=== PATIENT | female | born 1995 | race Caucasian/White ===

== ENCOUNTER → 2020-05-16 | Outpatient (CLI) | payer BC, SELFPAY ==
[2020-05-19 07:06] LABS: Chlamydia By Nucleic Acid AMP Negative (Negative)
[2020-05-19 13:03] LABS: Gonococcus By Nucleic Acid AMP Negative (Negative)
[2020-05-20 11:32] LABS: HPV Reflexed? NOT INDICATED
== END | disposition home or self-care (01) ==
LOC: LABSPEC 16:28
PROVIDERS: PCP Pediatrics; Visit Provider Student in an Organized Health Care Education/Training Program
DX: Z12.4 Encounter for screening for malignant neoplasm of cervix (principal); Z11.3 Encounter for screening for infections with a predominantly sexual mode of transmission; Z32.01 Encounter for pregnancy test, result positive
CPT/HCPCS: 87491; 87591; 88175; G0145

== ENCOUNTER → 2020-05-19 10:17 | Outpatient (CLI) | payer BC, SELFPAY ==
[2020-05-19 13:57] LABS: Absolute Lymphocyte Count 2.21 X10^3/uL (0.83-4.51); Absolute Neutrophil Count 9.3 X10^3/uL (2.0-7.7); Basophil# 0.08 X10^3/uL; Basophil% 0.6 % (0-1); Eosinophil# 0.03 X10^3/uL; Eosinophils% 0.2 % (0-5); Hematocrit 39.4 % (37-47); Lymphocyte # 2.21 X10^3/ul (4.0); Lymphocyte % 17.5 % (19-41); Mean Corpuscular Hgb 30.2 pg (27.0-32.0); Mean Corpuscular Volume 91.6 fL (81-99); Mean Platelet Vol. 11.1 fl (6.2-12.0); Monocyte% 7.9 % (0-10); NRBC Flagged by Analyzer 0 % (0-5); Neutrophil # 9.25 X10^3/uL (2.7-7.7); Neutrophil % 73.2 % (47-70); Platelet Count 347 K/mm3 (150-450); RBC Distribution Width CV 12.4 % (11.6-14.6); RBC Distribution Width SD 41.4 fl (35.1-43.9); White Blood Count 12.7 K/mm3 (4.4-11.0)
[2020-05-19 15:44] LABS: HIV - WCH Non-Reactive (Nonreactive); Hepatitis B Surface Antigen Non-Reactive (Nonreactive); Hepatitis C Antibody Non-Reactive (Nonreactive); Rubella IgG Reactive (Nonreactive)
[2020-05-23 09:21] LABS: Syphilis Antibodies Non-reactive
== END ==
PROVIDERS: Visit Provider Student in an Organized Health Care Education/Training Program
DX: Z34.81 Encounter for supervision of other normal pregnancy, first trimester (principal)
CPT/HCPCS: 36415; 85025; 86703; 86762; 86803; 87077; 87086; 87088; 87186; 87340

== ENCOUNTER → 2020-09-15 10:58 | Outpatient (CLI) | payer BC, SELFPAY ==
[2020-09-15 12:00] LABS: Hematocrit 33.6 % (37-47); Hemoglobin 11.3 g/dL (12.0-15.0); Mean Corp Hgb Conc 33.6 g/dL (32-36); Mean Corpuscular Hgb 29.7 pg (27.0-32.0); Mean Corpuscular Volume 88.2 fL (81-99); Mean Platelet Vol. 10.6 fl (6.2-12.0); Platelet Count 333 K/mm3 (150-450); RBC Distribution Width CV 12.9 % (11.6-14.6); RBC Distribution Width SD 41.4 fl (35.1-43.9); Red Blood Count 3.81 M/mm3 (4.2-5.4); White Blood Count 13.2 K/mm3 (4.4-11.0)
[2020-09-15 12:18] LABS: Glucose Challenge Gest 1H 50g 173 mg/dL (70-140)
== END ==
PROVIDERS: Visit Provider Obstetrics & Gynecology
DX: Z34.82 Encounter for supervision of other normal pregnancy, second trimester (principal)
CPT/HCPCS: 36415; 82950; 85027; 86850

== ENCOUNTER → 2020-09-23 09:42 | Outpatient (CLI) | payer BC, SELFPAY ==
[2020-09-23 10:26] LABS: Glucose GTT-Gestation. Fasting 85 mg/dL (<105)
[2020-09-23 11:44] LABS: Glucose GTT-Gestational 1 Hr 176 mg/dL (<190)
[2020-09-23 13:41] LABS: Glucose GTT-Gestational 3 Hr 85 L (<145)
[2020-09-23 13:42] LABS: Glucose GTT-Gestational 2 Hr 138 mg/dL (<165)
== END ==
PROVIDERS: Referring Provider Student in an Organized Health Care Education/Training Program; Visit Provider Student in an Organized Health Care Education/Training Program
DX: O24.419 Gestational diabetes mellitus in pregnancy, unspecified control (principal); Z3A.00 Weeks of gestation of pregnancy not specified
CPT/HCPCS: 36415; 82951; 82952

== ENCOUNTER → 2020-10-06 10:57 | Outpatient (CLI) | payer BC, SELFPAY | PROVIDERS: Visit Provider Obstetrics & Gynecology | DX: Z34.83 Encounter for supervision of other normal pregnancy, third trimester (principal) | CPT/HCPCS: 36415; 86850 ==

== ENCOUNTER → 2020-11-18 11:37 | Outpatient (CLI) | payer BC, SELFPAY ==
[2020-11-18 11:41] LABS: Bacteria 0 SEEN /hpf (None Seen); Mucous, Urine 0 SEEN /hpf (<or=2+); Red Blood Cells-Urine 0 SEEN /hpf (0-5); Squamous Epithelial Cells - UA 0 SEEN /hpf (5-10); White Blood Cells 0 SEEN /hpf (0-5)
[2020-11-18 12:44] LABS: Hematocrit 37.3 % (37-47); Hemoglobin 12.3 g/dL (12.0-15.0); Mean Platelet Vol. 10.6 fl (6.2-12.0); Platelet Count 292 K/mm3 (150-450); RBC Distribution Width CV 13.2 % (11.6-14.6); RBC Distribution Width SD 42.3 fl (35.1-43.9); Red Blood Count 4.24 M/mm3 (4.2-5.4); White Blood Count 15.1 K/mm3 (4.4-11.0)
[2020-11-18 12:47] LABS: Color, Urine Yellow (Yellow); Glucose, Dipstick Normal (Normal); Ketone-Dipstick Negative (Negative); Leukocyte Esterase-Dipstick 500 /ul (Negative); Nitrite-Dipstick Negative (Negative); Occult Blood-Urine Negative /ul (Negative); Protein-Dipstick Negative (Negative); Specific Gravity, Urine 1.005 (1.002-1.030); Urine Bilirubin Dipstick Negative (Negative); Urine Clarity Clear (Clear); Urine Urobilinogen Normal (Normal)
[2020-11-18 12:53] LABS: Creatinine, Urine (random) < 13.00 mg/dL (NO RANGE EST.); Protein, Urine (Random) < 6.0 mg/dL (<11.9)
[2020-11-18 12:56] LABS: ALB/GLOB Ratio 0.7 RATIO (0.9-2.4); AST(SGOT) 13 U/L (15-37); Alanine Aminotransfer ALT/SGPT 16 U/L (13-56); Albumin, Serum 2.7 g/dL (3.2-5.0); Alkaline Phosphatase 123 U/L (45-117); Anion Gap 8 (5-15); BUN 5 mg/dL (7-18); BUN/Creat Ratio 11.3 RATIO (10-20); Calcium,Total 8.7 mg/dL (8.5-10.1); Chloride 107 mmol/L (98-107); Creatinine, Serum 0.44 mg/dL (0.55-1.02); EST Glomerular Filtration Rate 182 mL/min (>60); Est Glom Filt Rate - Afr Amer 220 mL/min (>60); Globulin 4.1 g/dL (2.2-4.2); Glucose 85 mg/dL (74-106); LDH 147 U/L (84-246); Potassium 3.6 mmol/L (3.5-5.1); Protein, Total 6.8 g/dL (6.4-8.2); Sodium Level 139 mmol/L (136-145)
== END ==
PROVIDERS: Visit Provider Obstetrics & Gynecology
DX: O13.9 Gestational [pregnancy-induced] hypertension without significant proteinuria, unspecified trimester (principal); Z3A.00 Weeks of gestation of pregnancy not specified
CPT/HCPCS: 36415; 80053; 81001; 82570; 83615; 84156; 85027

== ENCOUNTER → 2020-11-28 | Outpatient (CLI) | payer BC, SELFPAY | END | disposition home or self-care (01) | LOC: LABSPEC 15:46 | PROVIDERS: Visit Provider Obstetrics & Gynecology | DX: Z36.85 Encounter for antenatal screening for Streptococcus B (principal) | CPT/HCPCS: 87081 ==

== ENCOUNTER 2020-12-06 18:33 | Inpatient (IN) | payer BC, SELFPAY ==
[2020-12-06] VITALS (9 sets, daily range): BP systolic 117–147; BP diastolic 70–89; PULSE 67–90; TEMP 36.4–36.9; O2SAT 96–98; BMI 31.1
--- NOTE | 2020-12-06 19:51 | HP.PCM.OB_ITS ---
HPI - General General Date of Admission: 12/06/20 HPI Narrative DIANNA FLOOD, is a 25 F who presents for scheduled IOL for gHTN. Denies headache, vision changes, shortness of breath. She feels well today. Maternal Data Information ROBYN Calculator Estimated Delivery Date Method Current WG Current Estimate 12/24/20 Manual 37w 3d PFSH [facility] Medical History (Updated 12/06/20 @ 21:[address] Arlen Sandra MD) Anxiety Gestational HTN Superficial varicosities Home Medications [id number] [] 1 tab PO DAILY 12/06/20 [History Last Taken 12/06/20] Allergy/AdvReac Type Severity Reaction Status Date / Time Latex, Natural Rubber Allergy Rash Verified 12/06/20 19:44 Family History (Updated 12/06/20 @ 21:[address] Arlen Sandra MD) Father Hypertension Cancer skin cancer CAD (coronary artery disease) Mother , age 43 Asthma Cancer breast, ovarian, colon cancer Brother Asthma Surgical History (Updated 12/06/20 @ 21:[address] Arlen Sandra MD) No history of previous surgery Social History Smoking Status: Light Smoker (<10/day) History 1 Elective abortions Hx Para 0 Spontaneous abortions Hx # Term Pregnancies Ectopic pregnancies Hx # Pregnancies Multiple births # of living children NST FHR Rate Baby B Baseline: 130 Variability:: Moderate Accelerations:: 15 x 15 Decelerations:: None NST Reactive:: Yes FHR Category:: Category I Uterine Activity:: 04/10 Vital Signs Vital Signs Vital Signs: 12/06/20 19:26 12/06/20 19:27 12/06/20 19:36 Temperature 98.1 F Temperature Source Temporal Pulse Rate 77 80 Blood Pressure 129/80 H BP Systolic 129 BP Diastolic 80 Pulse Ox 97 98 Weight Weight: 89.5 kg Body Mass Index (BMI) 31.1 Physical Exam Const alert, oriented x3 and no apparent distress HEENT normocephalic Resp normal respiratory effort, normal air movement and clear to auscultation bilaterally Cardio regular rate and regular rhythm GI normal to inspection, nondistended, normoactive bowel sounds, soft to palpation, non-tender and non-distended Inspection: gravid Narrative: 0/40/-3 per RN exam Bedside US performed by myself - CEPHALIC, back maternal left Labs Labs Labs: Blood Type A NEGATIVE Antibody Screen NEGATIVE Hct 36.9 % (37-47) L Hgb 12.4 g/dL (12.0-15.0) Syphilis Total Ab Non-reactive Rubella IgG Antibody Reactive (Nonreactive) Hep Bs Antigen Non-Reactive (Nonreactive) Neisseria gonorrhoeae DNA (REHAN) Negative (Negative) HIV 1&2 Antibody Non-Reactive (Nonreactive) Glucose 1 Hr 50 gm 173 mg/dL (70-140) H ACOG ANTEPARTUM RECORD - HISTORY AND PHYSICAL (12/06/2020) Name: DIANNA FLOOD History of this : This is a 25 year old [id number] presents at 37 wks + 3 days gestation. OB Physician: Roula Mckinley Tensed's Physician: UNDECIDED ...................................................................... : 1995 Age: 25 Address: [address] [place] [address] Phone: [phone]) [phone] Insurance Carrier: [facility] [id number] Emergency Contact: NATHAN CALLEJAS [phone] ...................................................................... Final ROBYN: 12/24/20 By Ultrasound: 8 weeks 5 days PARITY: (G-Total Pregnancies P-Fullterm,Premature,Induced AB,Spont AB, Ectopics, Multiple,Living) ROBYN CONFIRMATION: By LMP: 03/19/20 By First Ultrasound Exam: 12/19/20 Final ROBYN: 12/24/20 OB PROBLEM LIST: ALLERGIC TO LATEX. Enc office Childbirth Class. EPDS 6. Declines genetic testing. Desires immediate PP IUD Gestational HTN , needs IOL at 37wks Rh negative ALLERGIES: Latex Rash MEDICATIONS: AZO Complete Feminine Balance 5 billion cell capsule One pill by mouth once a day Classic 28 mg iron- 800 mcg tablet One pill by mouth once a day metronidazole 500 mg tablet 1 PO BID SOCIAL HISTORY: Smoking - smoker x 4 y. Quit Apr. Alcohol Use - RARELY not while Diet - balanced Diet and occ pop. Water tries for 4-5 bottles per night Lifestyle - moderate stress lifestyle Exercise - light workout. 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 Illicit Drug Use - denies use of street drugs Sexual Activity - did not discuss sexual history Place of - [place] Worked - 40 + Spouse-Sig Other Name - Lakhwindervonnie Callejas Spouse-Sig Other Occupation - [employer] Spouse-Sig Other Phone No - [phone] PRIOR DELIVERY HISTORY DEL DATE GEST LAB WT LB WT OZ TYPE ANES LABOR TX ANTEPARTUM FLOW CHART VISIT GE RTC FU F F MI U U DATE WK MD WKS HT PN HR M SS BP ED WT MI GL D EF ST __ ____ ___ __ __ ___ __ __ __ ___ __ __ __ ___ __ 30 Oct JM 1 36 V + + 124/70 0 200 - cl Oct JM 1 34 V + + 144/86 0 198 - - 04 Oct JM 2 32 V + + 140/72 0, 192 ne ne cl Oct 28 JM 2 30 - + + 148/72 0 192 - - 08 Oct 26 JM 2 28 - + + 134/74 0 188 - - Sep 23 JMW 3 25 + + 136/68 0 185 - - August 19 JMW 4 21 + + 150/88 0 181 ne ne May 13 CM 4 + O 134/74 0 174 - - May 8 CM 4 + 124/62 0 171 ANTEPARTUM NOTE(S): Nov 28 2020: Nov 18 2020: no concerns expressed Nov 02 2020: Oct 20 2020: 2nd BP 132/68 Oct 06 2020: Good FM, Feeling Well Sep 15 2020: CBC,OGCT Today,Good FM Aug 19 2020: US today, glucola given Jun 24 2020: May 19 2020: US today, genetic packet COMPREHENSIVE ANTEPARTUM NOTE(S): Dec 01 2020: H taken to OB. ab Nov 28 2020: Scheduled for Cytotec Induction for Saturday evening 12/06/20 at 1900, to call at 1700 to confirm available room. All consents have been signed. ALLISON Nov 28 2020: Dianna is here for initial NST. Procedure explained. Questions answered. Feeling well. Baby active. No edema, headache, epigastric pain. Has taken no classes. Pre registration discussed and info given. LARC form read and signed- she req Nicolásena post del. GBS to be done today. NST read as reactive by Dr KAUR. CONCHITA. Nov 28 2020: 36 weeks, diagnosis of gestational hypertension scheduled for induction of labor 12/06/2020 at 7 PM via Cytotec. Patient remains asymptomatic, HELLP labs wnl. GBS collected today. NATASHA Nov 18 2020: Dianna is here for a PNV. Good FM. No edema present at this time. Back pain, pt states she works a lot. Denies ctx's/ [facility] page. No concerns expressed. PIH labs today. MK Nov 18 2020: 34 weeks, began with elevated blood pressure asymptomatic. Now with diagnosis of gestational hypertension, educated patient on gestational hypertension and its risks maternally and . For HELLP labs today. Ultrasound today AGA. For NST next visit. We will schedule induction of labor at 37 weeks next visit. For GBS next visit. NATASHA Nov 02 2020: 32wks, complaints of discharge. SSE neg ferning, pos clue cells. CE closed. Dx with BV. Rx Flagyl sent. Will have to evaluate HTN at next visit if persistent, gHTN vs cHTN. Nov 02 2020: Dianna is here for PNV. See message from 11/01. Today with c/o vaginal odar similar to when she had BV. No itching or discharge. Having good FM. No edema noted today. Urine neg/neg. LSS Oct 20 2020: Continues to work @ [employer] 3 - 12 hr shifts + 3 - 8 hr shifts, 6 days / week. Dr India Lal had wanted her to limit standing to 6 hrs at a time, but this is not possible at her job; advised to call if this is becoming difficult for her. Discuss further w/Dr. Sondra Lal. Good FM. Voicing no concerns today. kbm Oct 20 2020: 30 weeks, no complaints. Oct 06 2020: Rhogam full dose given IM in RUOQ today via undersigned after antibody screen drawn. Lot: [id number] Exp: 11-13-20 ALLISON Oct 06 2020: 28 weeks, failed 1 hour GTT but passed 3-hour GTT. For RhoGam today. Works at [employer], discussed work restrictions previously placed on work restrictions by Dr. Nick Lal. Aug 19 2020: Dianna is here for PNV. Having US today. Feeling well with no complaints. Good FM noted. BP elevated 150/88. Retaken lying on left side 130/68. No edema noted. Glucola given with instructions. Voiced understanding. Urine neg/neg. LSS Jun 24 2020: 13/6w visit. Feeling well. F/u 4-5w. CM Jun 21 2020: TELEHEALTH NOB- Dianna had a partial NOB visit. Stated her cell phone was almost and she had no way to charge it. Checklist NOT co mpleted. Dianna is a 25 yo G 1 P 0 w ROBYN 12-24-20 planning a vag del at [facility] uncertain of epidural, post disch ped care and was not asked yet about feeding method. FOB is Lakhwinder. They both work at [employer]. Dianna works in sanitation 40+ h/w. She quit smoking May 19 2020: Dianna is here with SO following US for PNV. Both are very excited about and seeing baby and hearing heart beat on US. Feeling well and not having any N/V. Instructed to increase fluid intake eyal water throughout . Genetic packet given. LSS May 19 2020: 8/5w visit. ROBYN 12/24/20 by LMP FINAL. BP improved today. PNP drawn. F/u 4w. CM May 16 2020: Dianna is here with Lakhwinder GUY for missed menses appt. Urine pg test positive. c/o breast tenderness and fatigue. LMP 03/17/2020. Allergic to latex. DRC REVIEW OF SYSTEMS: GENERAL - Denies fever, or chills SKIN - Denies rash, new skin lesions, or change in moles EYES - Denies blurred vision, or change in visual acuity EARS - Denies ear pain, or difficulty hearing NOSE - Denies nasal congestion, discharge, or bleeding MOUTH - Denies sore throat, or difficulty swallowing NECK - Denies pain or swelling RESPIRATORY - Denies shortness of breath, cough, wheezing CARDIOVASCULAR - Denies palpitations, chest pain, orthopnea, PND, peripheral edema, syncope or claudication GASTROINTESTINAL - Denies nausea, vomiting, diarrhea, constipation, Denies abdominal pain, melena and or bright red blood GENITOURINARY - Denies dysuria, frequency of urination, urgency, or hesitancy MUSCULOSKELETAL - Denies joint or muscle pain, or back pain NEUROLOGICAL - Denies localized numbness, weakness, or tingling PSYCHIATRIC - Denies depression, anxiety, substance abuse or suicide attempts ENDOCRINE - Denies heat or cold intolerance, weight loss or gain, increasing th irst HEMATO-IMMUNOLOGIC - Denies easy bruising, bleeding, oral ulcerations or recurrent infections GENETICS SCREENING: Age 35+ years: No Thalassemia: No Neural Tube Defect: No Down Syndrome: No ROEL-SACHS: No Sickle Cell Disease: No Hemophilia: No Musc. Dystrophy: No Cystic Fibrosis: No-declines screening Delmi Chorea: No Mental Retardation: No Fragile X: No Other genetic: No Other defects: No SABs/still births: No Drugs since LMP: No INFECTION HISTORY: High risk AIDS: No High risk Hepatitis: No Exposed to TB: No Exposed to Herpes: No Rash/viral illness since LMP: No History of STD: No MENSTRUAL HISTORY: *Menses Amount/Duration: 4-5 DAYSMenses Regularity: RegularFrequency: monthlyBCP's at Conception: NoMenarche (Age Onset): 10* PAST SUMMARY: PARITY: 1. Total Pregnancies............ 1 2. Full Term Pregnancies........ 0 3. Premature.................... 0 4. Abortions - Induced.......... 0 5. Abortions - Spontaneous...... 0 6. Ectopics..................... 0 7. Multiple Births.............. 0 8. Living Children.............. 0 LAB TEST(S) ORDERED SINCE:03/29/20 12/01/2020 RULE OUT BETA STREP (GRP. B) 11/18/2020 URINALYSIS, COMPLETE 11/18/2020 PROTEIN+CREATININE RATIO,URINE 11/18/2020 LDH 11/18/2020 COMPREHENSIVE METABOLIC PROFIL 11/18/2020 CBC-COMPLETE BLOOD CNT NO DIFF 10/06/2020 [id number] 09/23/2020 GESTATIONAL GTT 3HR 100G 09/15/2020 GLUCOSE CHALLENGE GEST 1H 50G 09/15/2020 CBC-COMPLETE BLOOD CNT NO DIFF 09/15/2020 [id number] 05/23/2020 L509.8000 05/21/2020 URINE CULTURE 05/20/2020 PAP I-G W/RFX HRHPV-APTIMA 05/19/2020 RUBELLA IGG 05/19/2020 T AND S-NO CHARGE W/PNP 05/19/2020 HIV - [facility] 05/19/2020 HEPATITIS C ANTIBODY 05/19/2020 HEPATITIS B SURFACE ANTIGEN 05/19/2020 CHLAMYDIA/GC REHAN APTIMA 05/19/2020 CBC W/DIFF, AUTOMATED == ==== Order Observation Description Value Ref_Range A* Site == ==== RULE OUT BETA S NOTE RAE LDH NOTE RAE LDH LDH 147 U/L 84-246 ML COMPREHENSIVE M NOTE RAE COMPREHENSIVE M GLU 85 mg/dL 74-106 ML Please note revised GLUCOSE reference range effective 05/03/2017. COMPREHENSIVE M BUN 5 mg/dL 7-18 L ML COMPREHENSIVE M CREAT,SERUM 0.44 mg/dL 0.55-1.02 L ML The validity of the calculated GFR GFRAA in patients over 70 years has not been determined. Clinical correlation is essential. COMPREHENSIVE M EST GFR 182 mL/min >60 ML Non- GFR Calc COMPREHENSIVE M EST GFR - AA 220 mL/min >60 ML GFR Calc COMPREHENSIVE M BUN/CRE 11.3 RATIO 10-20 ML COMPREHENSIVE M T PROT 6.8 g/dL 6.4-8.2 ML COMPREHENSIVE M ALB 2.7 g/dL 3.2-5.0 L ML COMPREHENSIVE M GLOB 4.1 g/dL 2.2-4.2 ML COMPREHENSIVE M A/G 0.7 RATIO 0.9-2.4 L ML COMPREHENSIVE M CA,TOTAL 8.7 mg/dL 8.5-10.1 ML COMPREHENSIVE M AST 13 U/L 15-37 L ML COMPREHENSIVE M ALK P 123 U/L 45-117 H ML COMPREHENSIVE M ALT 16 U/L 13-56 ML COMPREHENSIVE M T BILI 0.30 mg/dL 0.20-1.00 ML For patients on eltrombopag therapy, use of Dimension [place] TBIL is not recommended. COMPREHENSIVE M NA 139 mmol/L 136-145 ML COMPREHENSIVE M POTASSIUM 3.6 mmol/L 3.5-5.1 ML COMPREHENSIVE M CL 107 mmol/L 98-107 ML COMPREHENSIVE M CO2 24.0 mmol/L 21.0-32.0 ML COMPREHENSIVE M GAP 8 5-15 ML URINALYSIS, COM NOTE RAE URINALYSIS, COM WBC 0 SEEN /hpf 0-5 ML URINALYSIS, COM RBC 0 SEEN /hpf 0-5 ML URINALYSIS, COM EPI,SQUAMOUS 0 SEEN /hpf 5-10 ML URINALYSIS, COM BACTERIA 0 SEEN /hpf None Seen ML URINALYSIS, COM MUCUS 0 SEEN /hpf <or=2+ ML PROTEIN+CREATIN NOTE RAE PROTEIN+CREATIN UR CREAT < 13.00 mg/dL NO RANGE EST. ML PROTEIN+CREATIN PROTEIN,UR.RAN. < 6.0 mg/dL <11.9 ML PROTEIN+CREATIN PROT:CRE RATIO TNP mg/g CRE 0-200 ML CBC-COMPLETE BL NOTE RAE CBC-COMPLETE BL WBC 15.1 K/mm3 4.4-11.0 H ML CBC-COMPLETE BL RBC 4.24 M/mm3 4.2-5.4 ML CBC-COMPLETE BL HGB 12.3 g/dL 12.0-15.0 ML CBC-COMPLETE BL HCT 37.3 37-47 ML CBC-COMPLETE BL MCV 88.0 fL 81-99 ML CBC-COMPLETE BL MCH 29.0 pg 27.0-32.0 ML CBC-COMPLETE BL MCHC 33.0 g/dL 32-36 ML CBC-COMPLETE BL RDW CV 13.2 11.6-14.6 ML CBC-COMPLETE BL RDW SD 42.3 fl 35.1-43.9 ML CBC-COMPLETE BL PLT 292 K/mm3 150-450 ML CBC-COMPLETE BL MPV 10.6 fl 6.2-12.0 ML [facility]~[address] [place], [phone] [id number] AB SCREEN GEL NEGATIVE ML GESTATIONAL GTT NOTE RAE GESTATIONAL GTT 3HR GTT- GEST. MG/DL ML FASTING 85 Col: 09/23/20 0951 GLUCOSE TOLERANCE TEST FOR Reference Interval GESTATIONAL DIABETES Fasting <105 mg/dL 1 hour <190 mg/dl 2 hour <165 mg/dl 3 hour <145 mg/dl 1 HR GLU 176 Col: 09/23/20 1054 2 HR GLU 138 Col: 09/23/20 1154 3 HR GLU 85 Col: 09/23/20 1255 [facility]~[address] [place], [address]~ [id number] AB SCREEN GEL NEGATIVE ML GLUCOSE CHALLEN NOTE RAE GLUCOSE CHALLEN GLU GEST 50G 1H 173 mg/dL 70-140 H ML CBC-COMPLETE BL NOTE RAE CBC-COMPLETE BL WBC 13.2 K/mm3 4.4-11.0 H ML CBC-COMPLETE BL RBC 3.81 M/mm3 4.2-5.4 L ML CBC-COMPLETE BL HGB 11.3 g/dL 12.0-15.0 L ML CBC-COMPLETE BL HCT 33.6 37-47 L ML CBC-COMPLETE BL MCV 88.2 fL 81-99 ML CBC-COMPLETE BL MCH 29.7 pg 27.0-32.0 ML CBC-COMPLETE BL MCHC 33.6 g/dL 32-36 ML CBC-COMPLETE BL RDW CV 12.9 11.6-14.6 ML CBC-COMPLETE BL RDW SD 41.4 fl 35.1-43.9 ML CBC-COMPLETE BL PLT 333 K/mm3 150-450 ML CBC-COMPLETE BL MPV 10.6 fl 6.2-12.0 ML L509.8000 NOTE RAE L509.8000 SYPHILIS ABS Non-reactive ML URINE CULTURE NOTE RAE HEPATITIS C ANT NOTE RAE HEPATITIS C ANT HEPATITIS C AB Non-Reactive Nonreactive ML Non Reactive: < 0.8 Equivocal: >/= 0.8 to < 1.0 Reactive: >/= 1.0 The CDC recommends that a reactive/equivocal HCV antibody result be followed up by the HCV Nucleic Acid Amplification test ([id number]) HEPATITIS B ANABEL NOTE RAE HEPATITIS B ANABEL HEP B SURF AG Non-Reactive Nonreactive ML HIV - [facility] NOTE RAE HIV - [facility] HIV Non-Reactive Nonreactive ML RUBELLA IGG NOTE RAE RUBELLA IGG RUBELLA IGG Reactive Nonreactive ML Antibody Results Interpretation of Immune Status Non Reactive Presumed Non-Immune Equivocal Equivocal Reactive Presumed Immune PN N [facility]~[address] [place], [address]~ T AND AB SCREEN GEL NEGATIVE ML CBC W/DIFF, AUT NOTE RAE CBC W/DIFF, AUT WBC 12.7 K/mm3 4.4-11.0 H ML CBC W/DIFF, AUT RBC 4.30 M/mm3 4.2-5.4 ML CBC W/DIFF, AUT HGB 13.0 g/dL 12.0-15.0 ML CBC W/DIFF, AUT HCT 39.4 37-47 ML CBC W/DIFF, AUT MCV 91.6 fL 81-99 ML CBC W/DIFF, AUT MCH 30.2 pg 27.0-32.0 ML CBC W/DIFF, AUT MCHC 33.0 g/dL 32-36 ML CBC W/DIFF, AUT RDW CV 12.4 11.6-14.6 ML CBC W/DIFF, AUT RDW SD 41.4 fl 35.1-43.9 ML CBC W/DIFF, AUT PLT 347 K/mm3 150-450 ML CBC W/DIFF, AUT MPV 11.1 fl 6.2-12.0 ML CBC W/DIFF, AUT NEUT% 73.2 47-70 H ML CBC W/DIFF, AUT LY% 17.5 19-41 L ML CBC W/DIFF, AUT MONO% 7.9 0-10 ML CBC W/DIFF, AUT EO% 0.2 0-5 ML CBC W/DIFF, AUT BASO% 0.6 0-1 ML CBC W/DIFF, AUT IG% 0.600 0.0-0.9 ML IG% - Immature Granulocytes (promyelocytes, myelocytes and metamyelocytes) > 1% indicates that a LEFT SHIFT is Present. CBC W/DIFF, AUT ABSOLUTE NEUT 9.3 X10 3/uL 2.0-7.7 H ML CBC W/DIFF, AUT ABSOLUTE LYMPH 2.21 X10 3/uL 0.83-4.51 ML CBC W/DIFF, AUT NUCLEATED RBC 0 0-5 ML PAP I-G W/RFX H NOTE RAE PAP I-G W/RFX H DIAG Comment . [facility]CI NEGATIVE FOR INTRAEPITHELIAL LESION OR MALIGNANCY. CELLULAR CHANGES ASSOCIATED WITH INFLAMMATION ARE PRESENT. PREDOMINANCE OF COCCOBACILLI CONSISTENT WITH SHIFT IN VAGINAL CHETAN IS PRESENT. PAP I-G W/RFX H ADEQ Comment . LCI Satisfactory for evaluation. Endocervical and/or squamous metaplastic cells (endocervical component) are present. PAP I-G W/RFX H PERFORM Comment . LCI Parisa Taylor Continuous Conveyor Screen Drier (ASCP) This liquid based ThinPrep(R) pap test was screened with the use of an image guided system. PAP I-G W/RFX H COMM . . [facility] PAP I-G W/RFX H PAPSMR Comment . LCI The Pap smear is a screening test designed to aid in the detection of premalignant and malignant conditions of the uterine cervix. It is not a diagnostic procedure and should not be used as the sole means of detecting cervical cancer. Both false-positive and false-negative reports do occur. PAP I-G W/RFX H HPV RFLX Comment . LCI The HPV DNA reflex criteria were not met with this specimen result therefore, no HPV testing was performed. Performed at: [address] [id number] Director Of Archives: Deepali Bazzi MD, Phone: [phone] CHLAMYDIA/GC NA NOTE RAE CHLAMYDIA/GC NA CHLAMY,NUC ACID Negative Negative LCI CHLAMYDIA/GC NA GC BY NUC ACID Negative Negative LCI Performed at: =[address] [id number] Director Of Archives: Deepali Bazzi MD, Phone: [phone] Group B Beta Streptococcus is not isolated. Escherichia coli [employer] Count 25,000-50,000 A NEGATIVE Assessment & Plan (1) 37 weeks gestation of : (2) Gestational HTN: QUALIFIERS: Trimester: third trimester Qualified Code(s): O13.3 - Gestational [-induced] hypertension without significant proteinuria, third trimester PLAN: Misoprostol IOL Consents reviewed and signed (3) : QUALIFIERS: Weeks of gestation: 37 weeks Qualified Code(s): Z3A.37 - 37 weeks gestation of
[2020-12-06 20:09] LABS: Absolute Lymphocyte Count 2.06 X10^3/uL (0.83-4.51); Absolute Neutrophil Count 12.7 X10^3/uL (2.0-7.7); Basophil# 0.08 X10^3/uL; Basophil% 0.5 % (0-1); Eosinophil# 0.09 X10^3/uL; Eosinophils% 0.5 % (0-5); Hematocrit 36.9 % (37-47); Hemoglobin 12.4 g/dL (12.0-15.0); Lymphocyte # 2.06 X10^3/ul (0.83-4.51); Lymphocyte % 12.5 % (19-41); Mean Corp Hgb Conc 33.6 g/dL (32-36); Mean Corpuscular Hgb 29.5 pg (27.0-32.0); Mean Corpuscular Volume 87.6 fL (81-99); Mean Platelet Vol. 10.7 fl (6.2-12.0); Monocyte% 7.3 % (0-10); NRBC Flagged by Analyzer 0 % (0-5); Neutrophil # 12.68 X10^3/uL (2.7-7.7); Neutrophil % 76.9 % (47-70); Platelet Count 324 K/mm3 (150-450); RBC Distribution Width CV 13.2 % (11.6-14.6); Red Blood Count 4.21 M/mm3 (4.2-5.4); White Blood Count 16.5 K/mm3 (4.4-11.0)
[2020-12-06] MEDS: miSOPROStol 25 MCG TABLET VAGINAL (21:02)
[2020-12-07] VITALS (41 sets, daily range): BP systolic 125–161; BP diastolic 67–97; PULSE 61–173; RESP 16; TEMP 36.1–37.2; O2SAT 92–99
[2020-12-07] MEDS: miSOPROStol 50 MCG TABLET VAGINAL ×2 (01:09→07:24)
--- NOTE | 2020-12-07 07:49 | PN.OBGYN_ITS ---
Subjective Subjective No issues overnight. Reports mild contractions overnight. Denies headache, vision changes, shortness of breath or other abdominal pain Objective Data Objective Data Vital Signs: Vital Signs Temp Pulse BP Pulse Ox 98.4 F 68 125/77 H 97 12/07/20 07:35 12/07/20 07:35 12/07/20 07:35 12/07/20 07:35 Weight: 89.5 kg Body Mass Index (BMI) 31.1 Lab / Micro Data Result Diagrams: 12/06/20 19:30 Labs: Laboratory Results - last 24 hr 12/06/20 19:30: WBC 16.5 H, RBC 4.21, Hgb 12.4, Hct 36.9 L, MCV 87.6, MCH 29.5, MCHC 33.6, RDW Std Deviation 42.0, RDW Coeff of Gretchen 13.2, Plt Count 324, MPV 10.7, Immature Gran % (Auto) 2.300 H, Neut % (Auto) 76.9 H, Lymph % (Auto) 12.5 L, [place] % (Auto) 7.3, Eos % (Auto) 0.5, Baso % (Auto) 0.5, Absolute Neuts (auto) 12.7 H, Absolute Lymphs (auto) 2.06, Nucleated RBC % 0 12/06/20 19:30: Blood Type A NEGATIVE, Antibody Screen NEGATIVE Micro: Microbiology 12/06/20 19:45 Nasal Secretion SARS-CoV-2 Antigen (Rapid) - Final Physical Exam Const alert, oriented x3 and no apparent distress Narrative: 0/50/-3 per RN exam NST FHR Rate Baby A Baseline: 125 Variability:: Minimal Accelerations:: 15 x 15 Decelerations:: None NST Reactive:: Appropriate for gestational age FHR Category:: Category II Uterine Activity:: 07/09 Assessment & Plan (1) : QUALIFIERS: Weeks of gestation: 37 weeks Qualified Code(s): Z3A.37 - 37 weeks gestation of (2) Gestational HTN: QUALIFIERS: Trimester: third trimester Qualified Code(s): O13.3 - Gestational [-induced] hypertension without significant proteinuria, third trimester PLAN: No si/sx worsening (3) 37 weeks gestation of : PLAN: Misoprostol for cervical ripening continued
[2020-12-07] MEDS: Lactated Ringers 1,000 ML 50 ML IV (13:30)
[2020-12-07] MEDS: Oxytocin 30 units/NS 500 ml 30 UNITS/500 ML IV.SOLN IV (13:31)
[2020-12-07] MEDS: Ondansetron 4 MG/2 ML Vial IV (17:50)
[2020-12-07] MEDS: Oxytocin 30 units/NS 500 ml 30 UNITS/500 ML IV.SOLN 334 UNITS IV (20:05)
--- NOTE | 2020-12-07 20:13 | OP.PCM_ITS ---
Maternal Data Information ROBYN Calculator Estimated Delivery Date Method Current WG Current Estimate 12/24/20 Manual 37w 4d Vaginal Delivery Maternal Presentation Maternal Presentation: Medically Indicated Induction Type of Induction: Cervidil and Pitocin Medical Reason for Induction: Gestational Hypertension Operative Information Date of Procedure: 12/07/20 Pre-Operative Diagnosis: IUP, Gestational Hypertension Post-Operative Diagnosis: IUP, Gestational Hypertension Surgery / Procedure Performed: Spontaneous Vaginal Delivery Type of Anesthesia: Local with 1% Lidocaine Estimated Blood Loss: 250 cc Fluids Replaced: Crystalloid Findings Description of Procedure: Spontaneous vaginal delivery of a viable female infant with Apgars of 8/9 from an occiput anterior presentation with clear amniotic fluid and normal three-vessel placenta. Cord around the neck x1 tight. First- degree midline episiotomy extended to a second-degree midline laceration repaired with 3-0 Vicryl suture under local anesthesia. Sponges okay. Delivery physician: Cameron Villafana MD. Presentation: Vertex Amniotic Membrane Rupture Type: Spontaneous Amniotic Fluid Description: Clear Placental Delivery Description: Spontaneous Placenta Disposition: [facility] Cord Vessel Description: 3 Vessels Cord Entanglement: Around neck x 1, tight Infant A Gender: Female (1 minute): 8 (5 minute): 9 Delayed Cord Clamping: Yes Post Vaginal Delivery Medications Given After Delivery: IV Pitocin and IM Methergin Episiotomy Description: Midline and 1st degree Laceration: Midline and 2nd degree Complication Complications: None
[2020-12-07] MEDS: Methylergonovine 0.2 MG/ML Ampul IM (20:15)
--- NOTE | 2020-12-07 20:16 | PCM.DC ---
Discharge Instructions Diet Discharge Diet: No restrictions Activity Discharge Activity: May Drive (In 1 to 2 days if not taking narcotic pain medication), May Shower and May Take a Tub Bath May resume sexual activity in: 4-6 weeks Additional Activity Instructions:: Nothing in the vagina for 4-6 weeks. You may return to work/school in 6 weeks. Dressing / Incision Call your doctor if you observe: Fever of 101 or Higher, Inability to urinate, Inability to have a bowel movement and Using more than 1 pad per hour Follow Up Care Please Follow Up With: Georges Lal MD When: Call [phone] to make an appointment with your doctor in 6 weeks. Test Results: Test results from this visit will be discussed in further detail at your follow-up appointment, if applicable. Discharge Plan Admission Admit Date/Time: 12/06/20 18:33 Primary Reason for Your Visit: Vaginal Delivery Attending Provider: Cameron Villafana Primary Care Provider: Care Physician,Joanne Primary Discharge Orders/Prescriptions Prescriptions: No Action 1 mg Tablet 1 tab PO DAILY RF: 0 Referrals / Follow Up: Care Physician,No Primary [Primary Care Provider] - Disposition Disposition (needs filled in before D/C Order can be placed): Home, Self Care
--- NOTE | 2020-12-07 22:33 | NURSING ---
Assisted pt up to BR. Able to void, missed hat. Egg size clot noted in toilet. Bleeding WNL, pt educated on pericare, s/s to report. Pt tolerated walking with minimal assistance.
[2020-12-08 04:20] VITALS: BP 128/64; PULSE 89; RESP 18; TEMP 36.2
--- NOTE | 2020-12-08 07:22 | NURSING ---
bedside report given to Mary Anderson RN who is assuming care of pt at this time
[2020-12-08 08:25] VITALS: BP 129/79; PULSE 84; RESP 16; TEMP 35.8
--- NOTE | 2020-12-08 08:34 | NURSING ---
Fundus to the right of midline. Encouraged pt to try going to the bathroom and will recheck.
--- NOTE | 2020-12-08 09:28 | PCM.PN.OB ---
Subjective Subjective Patient without complaints. Breast-feeding going well. Minimal vaginal bleeding reported. Wants to go home today if baby is able to go. Objective Data Objective Data Vital Signs: Vital Signs Temp Pulse Resp BP Pulse Ox 96.4 F L 84 16 129/79 H 96 12/08/20 08:25 12/08/20 08:25 12/08/20 08:25 12/08/20 08:25 12/07/20 20:31 Oxygen Delivery Method Room Air Weight: 197 lb 5.019 oz Body Mass Index (BMI) 31.1 Intake & Output: Intake and Output for Last 24 Hours 12/06/20 12/07/20 12/08/20 23:59 23:59 23:59 Intake Total 2128.98 / 2128.98 Output Total 1200 / 1200 500 / 500 Balance 928.98 / 928.98 -500 / -500 Lab / Micro Data Result Diagrams: 12/06/20 19:30 Micro: Microbiology 12/06/20 19:45 Nasal Secretion SARS-CoV-2 Antigen (Rapid) - Final Assessment & Plan (1) 37 weeks gestation of : PLAN: Doing well day #1 status post routine spontaneous vaginal delivery. Will discharge to home with routine instructions.
[2020-12-08 13:50] VITALS: BP 137/79; PULSE 82; RESP 16; TEMP 35.9
[2020-12-08 16:59] VITALS: BP 132/94; PULSE 94; RESP 16; TEMP 36.3
[2020-12-08 20:35] VITALS: BP 120/69; PULSE 80; RESP 16; TEMP 35.8; O2SAT 96
== END 2020-12-08 23:20 | disposition home or self-care (01) | DRG 807 ==
PROVIDERS: Obstetrics & Gynecology; Admitting Provider Obstetrics & Gynecology; Visit Provider Obstetrics & Gynecology
DX: O13.3 Gestational [pregnancy-induced] hypertension without significant proteinuria, third trimester (principal); Z37.0 Single live birth; O42.92 Full-term premature rupture of membranes, unspecified as to length of time between rupture and onset of labor; O69.1XX0 Labor and delivery complicated by cord around neck, with compression, not applicable or unspecified; O70.1 Second degree perineal laceration during delivery; O99.334 Smoking (tobacco) complicating childbirth; F17.200 Nicotine dependence, unspecified, uncomplicated; Z3A.37 37 weeks gestation of pregnancy
CPT/HCPCS: 59025; 59050; 76815; 85025; 86850; 86900; 86901; 87426; 99218; J7120; G0378; J2405

== ENCOUNTER 2022-07-30 06:50 | Inpatient (IN) | payer MEDICAID, SELFPAY ==
[2022-07-30] VITALS (20 sets, daily range): BP systolic 114–164; BP diastolic 61–101; PULSE 58–93; RESP 18; TEMP 36.4–36.9; O2SAT 96; BMI 33.7
[2022-07-30] MEDS: Oxytocin 15 Units/NS 250ml 15 UNITS/250 ML IV.SOLN 2 UNITS IV (08:18)
[2022-07-30] MEDS: Lactated Ringers 1,000 ML 50 ML IV (08:20)
--- NOTE | 2022-07-30 08:20 | PCM.HP.OB ---
HPI - General General Date of Admission: 07/30/22 HPI Narrative MITESH FLOOD, is a 27 F at 39 weeks gestation who presents for scheduled induction of labor for chronic hypertension. Maternal Data Information ROBYN Calculator Estimated Delivery Date Method Current WG Current Estimate 08/06/22 Manual 39w 0d PFSH PFS Medical History 37 weeks gestation of Anxiety Gestational HTN Superficial varicosities Home Medications [id number]-[id number]-FA 1 mg tablet 1 tab PO DAILY 12/06/20 [History Last Taken 12/06/20] Allergy/AdvReac Type Severity Reaction Status Date / Time Latex, Natural Rubber Allergy Rash Verified 12/06/20 19:44 Family History (Updated 12/06/20 @ 21:[address] Arlen Sandra MD) Father Hypertension Cancer skin cancer CAD (coronary artery disease) Mother , age 43 Asthma Cancer breast, ovarian, colon cancer Brother Asthma Surgical History No history of previous surgery Social History Smoking Status: Former smoker History 1 Elective abortions Hx Para 1 Spontaneous abortions Hx # Term Pregnancies Ectopic pregnancies Hx # Pregnancies Multiple births # of living children ROS Eyes Eyes: Denies blurry vision, change in vision or spots in vision ENT HEENT: Denies dizziness or headache(s) Cardiovascular Cardiovascular: Denies abdominal pain, chest pain or dyspnea Respiratory/Chest Respiratory/Chest: Denies cough, dyspnea, shortness of breath at rest or shortness of breath with exertion Gastrointestinal Gastrointestinal: Denies abdominal pain, diarrhea or vomiting Genitourinary Genitourinary: Denies change in urinary stream, difficulty urinating or dysuria Musculoskeletal Musculoskeletal: Reports none Integumentary Integumentary: Denies rash Neurologic Neurologic: Denies dizziness, headache(s), memory loss or weakness Psychiatric Psychiatric: Reports none Vital Signs Vital Signs Vital Signs: 07/30/22 07:20 07/30/22 07:20 Pulse Rate 93 Blood Pressure 127/70 H BP Systolic 127 BP Diastolic 70 Weight Weight: 209 lb 2 oz Body Mass Index (BMI) 33.7 Physical Exam Const alert and no apparent distress General Appearance: cooperative Orientation / Consciousness: awake Exam Limitations: no limitations HEENT normocephalic Eyes General Eye: normal appearance of both eyes Neck full ROM Chest inspection of chest normal Resp normal respiratory effort and normal air movement Effort and Inspection: symmetric chest movement Auscultation: clear to auscultation bilaterally Cardio regular rate GI soft to palpation, non-tender and non-distended Inspection: and other Back/Spine normal ROM Extremity full ROM, normal capillary refill and no calf tenderness Skin no rashes or lesions noted Neuro oriented x3 and CN's II-XII intact bilaterally Psych mental status grossly normal Labs Labs Labs: Blood Type A NEGATIVE Antibody Screen NEGATIVE Hct 35.3 % (37-47) L Hgb 12.0 g/dL (12.0-15.0) Syphilis Total Ab Non-reactive Rubella IgG Antibody Reactive (Nonreactive) Hep Bs Antigen Non-Reactive (Nonreactive) Chlamydia DNA (REHAN) Negative (Negative) Neisseria gonorrhoeae DNA (REHAN) Negative (Negative) HIV 1&2 Antibody Non-Reactive (Nonreactive) Glucose 1 Hr 50 gm 173 mg/dL (70-140) H Rhogam given: No Assessment & Plan (1) 39 weeks gestation of : (2) Chronic hypertension affecting : (3) Anxiety: (4) Encounter for elective induction of labor: (5) Rh negative status during : PLAN: Plan Admit to labor and delivery CE /-2 Routine labs Start IV and run fluids per orders Start Pitocin IV @ 2 mu/min and increase per orders CHTN- start HTN protocol GBS negative Epidural when indicated Anticpate
[2022-07-30 08:22] LABS: Absolute Lymphocyte Count 2.06 X10^3/uL (0.83-4.51); Absolute Neutrophil Count 9.9 X10^3/uL (2.0-7.7); Basophil# 0.05 X10^3/uL; Basophil% 0.4 % (0-1); Eosinophil# 0.08 X10^3/uL; Eosinophils% 0.6 % (0-5); Hematocrit 35.3 % (37-47); Lymphocyte # 2.06 X10^3/ul (0.83-4.51); Lymphocyte % 15.4 % (19-41); Mean Corpuscular Hgb 29.8 pg (27.0-32.0); Mean Corpuscular Volume 87.6 fL (81-99); Mean Platelet Vol. 10.9 fl (6.2-12.0); Monocyte# 1.22 X10^3/uL; Monocyte% 9.1 % (0-10); NRBC Flagged by Analyzer 0 % (0-5); Neutrophil # 9.88 X10^3/uL (2.7-7.7); Neutrophil % 73.5 % (47-70); Platelet Count 279 K/mm3 (150-450); RBC Distribution Width CV 13.2 % (11.6-14.6); RBC Distribution Width SD 42.1 fl (35.1-43.9); Red Blood Count 4.03 M/mm3 (4.2-5.4); White Blood Count 13.4 K/mm3 (4.4-11.0)
[2022-07-30 09:12] LABS: Syphilis Antibodies Non-reactive
[2022-07-30 14:47] LABS: Hepatitis C Antibody Non-Reactive (Nonreactive)
[2022-07-30] MEDS: Oxytocin 15 Units/NS 250ml 15 UNITS/250 ML IV.SOLN 83 UNITS IV (16:48)
--- NOTE | 2022-07-30 17:26 | EX.PCM.OBRPT ---
Assessment & Plan (1) (spontaneous vaginal delivery): (2) Laceration, obstetrical, second degree: (3) Chronic hypertension affecting : (4) Anxiety: Maternal Data Information ROBYN Calculator Estimated Delivery Date Method Current WG Current Estimate 08/06/22 Manual 39w 0d Vaginal Delivery Maternal Presentation Maternal Presentation: Medically Indicated Induction Maternal Presentation: at 39 weeks gestation for induction of labor for chronic hypertension. Type of Induction: Pitocin Medical Reason for Induction: - (Chronic HTN) Operative Information Date of Procedure: 07/30/22 Pre-Operative Diagnosis: Term gestation, induction of labor, Chronic HTN Post-Operative Diagnosis: Same, live male infant Surgery / Procedure Performed: Spontaneous Vaginal Delivery Type of Anesthesia: Local with 1% Lidocaine Estimated Blood Loss: 250 Time of Delivery: 16:44 Findings Description of Procedure: Patient unmedicated. Called to bedside due to patient pushing involuntarily. Patient in hands and knees position. Complete dilation +1 station. With minimal maternal effort, head delivered followed immediately by posterior shoulder and remainder of body. Vigorous male placed through maternal legs and put skin to skin with patient. was attended to by nursing staff. Pitocin IV started for active management of the third stage of labor. 3 vessel cord clamped and cut by FOB after delay. Patient repositioned in lithotomy position. Patient straight cathed for 100 cc clear/yellow urine. Placenta delivered spontaneously and intact. A second degree perineal laceration was repaired in usual fashion using Vicryl 3-0 Rapid after local anesthesia given. Hemostasis obtained. Vaginal sweep completed by me. All sponges and needles accounted for. Rectal exam completed. Fundus firm 2 below U. EBL 250 cc. APGARS 8/9. and patient bonding well at this time. Dr. Juarez notified of delivery. Presentation: Vertex Amniotic Membrane Rupture Type: Spontaneous Time of Membrane Rupture: 1555 Amniotic Fluid Description: Clear Placental Delivery Description: Spontaneous Placenta Disposition: [facility] Cord Vessel Description: 3 Vessels Cord Entanglement: None Infant A Gender: Male (1 minute): 8 (5 minute): 9 Delayed Cord Clamping: Yes Post Vaginal Delivery Medications Given After Delivery: IV Pitocin Episiotomy Description: None Laceration: 2nd degree Complication Complications: None
[2022-07-30] MEDS: Naproxen 500 MG Tablet PO (18:12)
[2022-07-31 00:20] VITALS: BP 120/69; PULSE 77; RESP 14; TEMP 36.5
[2022-07-31 03:30] VITALS: BP 121/73; PULSE 73; RESP 14; TEMP 36.4
--- NOTE | 2022-07-31 08:24 | PCM.PN.OB ---
Subjective Subjective Doing well per patient and nursing staff. Ambulating and taking PO without difficulty. Voiding and passing flatus. Pain controlled. , services for assistance. Denies headache, visual changes, chest pain, shortness of breath, leg pain or increased bleeding. Lochia normal. Objective Data Objective Data Vital Signs: Vital Signs Temp Pulse Resp BP Pulse Ox O2 Del Method 97.6 F L 73 14 121/73 H 96 Room Air 07/31/22 03:30 07/31/22 03:30 07/31/22 03:30 07/31/22 03:30 07/30/22 09:00 07/31/22 03:30 Oxygen Delivery Method Room Air Weight: 209 lb 2 oz Body Mass Index (BMI) 33.7 Intake & Output: Intake and Output for Last 24 Hours 07/29/22 07/30/22 07/31/22 23:59 23:59 23:59 Intake Total 937.03 / 937.03 Output Total 450 / 450 Balance 487.03 / 487.03 Lab / Micro Data Result Diagrams: 07/30/22 08:00 Labs: Laboratory Results - last 24 hr 07/30/22 08:00: Blood Type A NEGATIVE, Antibody Screen Not Reportable 07/30/22 08:00: Syphilis Total Ab Non-reactive 07/30/22 08:00: Antibody Screen NEGATIVE 07/30/22 08:00: Hepatitis C Antibody Non-Reactive 07/30/22 21:05: Screen NEGATIVE, Baby's Blood Type A WEAK RH D, Baby's ROSMERY NEGATIVE ROS Constitutional Constitutional: Reports systems reviewed and no addt'l complaints, except as documented; Denies headache(s) Eyes Eyes: Denies acute decrease in peripheral vision, blurry vision or change in vision ENT HEENT: Reports systems reviewed and no addt'l complaints, except as documented Cardiovascular Cardiovascular: Denies chest pain or dizziness Respiratory/Chest Respiratory/Chest: Denies cough, dyspnea, dyspnea on exertion, shortness of breath at rest or shortness of breath with exertion Gastrointestinal Gastrointestinal: Denies abdominal pain, diarrhea, nausea or vomiting Genitourinary Genitourinary: Denies abdominal discomfort Musculoskeletal Musculoskeletal: Denies limited range of motion Integumentary Integumentary: Reports systems reviewed and no addt'l complaints, except as documented Neurologic Neurologic: Reports systems reviewed and no addt'l complaints, except as documented Psychiatric Psychiatric: Reports systems reviewed and no addt'l complaints, except as documented Endocrine Endocrinology: Reports systems reviewed and no addt'l complaints, except as documented Hematologic/Lymphatic Hematologic/Lymphatic: Reports systems reviewed and no addt'l complaints, except as documented Allergic/Immunologic Allergic/Immunologic: Reports systems reviewed and no addt'l complaints, except as documented Physical Exam Const alert and oriented x3 General Appearance: cooperative Orientation / Consciousness: awake, oriented to person, oriented to place and oriented to time Exam Limitations: no limitations HEENT normocephalic Head and Scalp: normal to inspection, normocephalic and atraumatic Face and Sinus: normal facial exam Eyes General Eye: normal appearance of both eyes Neck full ROM Chest Chest: symmetrical chest wall rise Resp normal respiratory effort and normal air movement Auscultation: clear to auscultation bilaterally Cardio regular rate, regular rhythm, S1 normal heart sound, S2 normal heart sound, no murmurs, no rub, no gallops and no clicks GI normal to inspection, nondistended, normoactive bowel sounds and non-tender appearance of the vagina normal Bladder / Kidney Exam: no CVA tenderness Back/Spine normal ROM Extremity normal to inspection and full ROM Skin no rashes or lesions noted Neuro oriented x3, CN's II-XII intact bilaterally and moves all extremities Sensorium / Orientation: awake, alert and oriented to person Motor Exam: clonus absent Deep Tendon Reflexes: Rt Patellar (L4): 2+ and Lt Patellar (L4): 2+ Assessment & Plan (1) Laceration, obstetrical, second degree: (2) (spontaneous vaginal delivery): (3) Rh negative status during : PLAN: Plan 1) Routine PP care 2) Planning D/C home today 3) Vitals stable 4) Pain management 5) Follow up in 2 weeks and 6 weeks
--- NOTE | 2022-07-31 08:26 | DS.PCM_ITS ---
Providers Date of Admission: 07/30/22 Primary Care Physician: No Primary Care Phys Reason For Visit: VAGINAL DELVERY Diagnosis Discharge Diagnosis (1) Laceration, obstetrical, second degree: Status: Acute Code(s): O70.1 - Second degree perineal laceration during delivery (2) (spontaneous vaginal delivery): Status: Acute Code(s): O80 - Encounter for full-term uncomplicated delivery (3) Rh negative status during : Status: Acute Code(s): O26.899 - Other specified related conditions, unspecified trimester; Z67.91 - Unspecified blood type, Rh negative Plan 1) Routine PP care 2) Planning D/C home today 3) Vitals stable 4) Pain management 5) Follow up in 2 weeks and 6 weeks Medications at Discharge Home Medications gciloqxl-tmr-Vm-FA 1 mg tablet 1 tab PO DAILY 12/06/20 acetaminophen 500 mg tablet 1,000 mg PO Q6H PRN PRN Pain 1-10 Or Fever #0 tabs 07/31/22 naproxen 500 mg tablet 500 mg PO Q8H PRN PRN Pain Score 1-3 #0 tabs 07/31/22 Weight / BMI Weight Weight: 209 lb 2 oz Body Mass Index (BMI) 33.7 ABG / Lab / Microbiology Data Result Diagrams: 07/30/22 08:00 Laboratory: Laboratory Results - last 24 hr 07/30/22 08:00: Blood Type A NEGATIVE, Antibody Screen Not Reportable 07/30/22 08:00: Syphilis Total Ab Non-reactive 07/30/22 08:00: Antibody Screen NEGATIVE 07/30/22 08:00: Hepatitis C Antibody Non-Reactive 07/30/22 21:05: Screen NEGATIVE, Baby's Blood Type A WEAK RH D, Baby's ROSMERY NEGATIVE Meaningful Use Info Meaningful Use Diagnoses (Choose all that apply): None applicable Discharge Plan Admission Admit Date/Time: 07/30/22 06:50 Primary Reason for Your Visit: Vaginal delivery Attending Provider: Kathia Ovalle Primary Care Provider: Care Physician,No Primary Instructions Patient Instructions: After a Vaginal Discharge Orders/Prescriptions Prescriptions: New acetaminophen 500 mg Tablet 1,000 mg PO Q6H PRN PRN (Reason: Pain 1-10 Or Fever) Qty: 0 0RF naproxen 500 mg Tablet 500 mg PO Q8H PRN PRN (Reason: Pain Score 1-3) Qty: 0 0RF Continued [id number]-hvp-Tb-FA 1 mg Tablet 1 tab PO DAILY Referrals / Follow Up: Kathia Ovalle CNM [Med Staff - Adv Practice Prof] - (Follow up in 2 weeks a nd 6 weeks with desired provider) Care Physician,No Primary [Primary Care Provider] - Disposition Disposition (needs filled in before D/C Order can be placed): Home, Self Care
[2022-07-31 08:37] VITALS: BP 119/76; PULSE 66; RESP 16; TEMP 36.4
[2022-07-31 14:16] VITALS: BP 109/59; PULSE 81; RESP 18; TEMP 36.7
--- NOTE | 2022-07-31 17:55 | CASEMGMT ---
Social Work Assessment Labor and Delivery Unit Patient Address: [place] [address] Phone number: [phone] Date of Referral: 07/30/22 Time of Referral:? 8:52 Referred By: HARISH Ovalle Date of Intervention: 07/31/22? Time of Intervention:? 17:50 Reason for Referral: hx of anxiety History obtained from: medical records, mother of baby (MOB) and father of baby (FOB) Household composition: NAGA reports she lives in a three bedroom house she rents. FOB resides in separate home. MOB and FOB have an almost two year old girl named Megan and FOB has a 6 year old son. MOB reports their home has adequate space, no housing concerns. Patient's parent/guardian status: NAGA reports she has been with FOB, Case Panchal (30 years old), for three years. FOJannet is actively involved with children and reports AOD history as a young adult after high school but reports no current use or concerns. FOB reports history of depression but no current concerns. NAGA reports no concerns with DV, AOD or MH for FOB. Medical History: NAGA was engaged in care at [facility] with Aparna and originally was receiving care from [facility] at ten weeks but transferred providers due to feeling she wasn?t getting the support needed regarding blood pressure concerns. NAGA reports this is her second that resulted in the of their second child, Aristides BRAN. Aristides was born 07/30/22, weighing 3525g, and Apgars 8/9. MOB report NB?s tent worker will be a MD Watkins. NAGA plans to breast and bottle feed. NAGA plans to discuss having her tubes tied with her OB at her two week check up. Educational Status: NAGA reports highest level of education high school diploma with some college. NAGA reports she is currently enrolled in college, no learning concerns. ? 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 FOJannet is employed daytime babysitter at [employer] with limited time off. No financial concerns reported. Infant Supplies: NAGA reports having all the supplies needed including a car seat, bassinet in their bedroom, clothes and diapers/wipes. MOB reports NB will transition to their own room when appropriate. Childcare/Caregiver(s): MOB reports she will be home with NB for 2 weeks and then returning to work with the ability to bring NB. MOB explained she has support from FOB, FOB?s mother, and MOB?s sisters. Transportation: MOB report they both have vehicles, no concerns. ?? Programs/Agencies Involved: ??MOB reports she currently receives Medicaid from [employer] [facility] and is enrolled in [facility]. No other referrals needed at this time. ? Children Services/Legal Issues: None reported??? Behavioral Health Issues: ??Mental Health History:? MOB reports history of anxiety, explaining she hasn?t experienced a panic attack since she was 20. MOB reports her symptoms increase motivation and are not currently negatively impacting her functioning.. MOB reports no previous psych hospitalization. No AOD concerns. Family/Social Stressors:? No stressors identified. Support Systems: MOB reports she is supported by FOJannet, her father and step mom, MOB?s sisters as well as FOJannet?s mother. Depression/Shaken Baby/Safe Sleeping: LON educated MOB on depression/anxiety as well as shaken baby and safe sleep. MOB report NB will be sleeping in a basinet beside her bed but has a crib in his nursey to transition to when he is older. LON provided MOB with educational information as well as resources on the topics. MOB report understanding and voice no other needs. LON encouraged MOB to contact OB or PCP if she is concerned with symptoms. ??? ASSESSMENT:? LON met with MOB and introduced herself and role as [facility] Erecting Crane Operator. MOB in agreement to speak with SW with FOB present. LON utilized open and close ended questions to gather information needed for an assessment. MOB report having supplies needed, identified supports and reports being connected to [facility] and [place] services and declined additional referrals. MOB report history of anxiety but feels she has been managing symptoms since age 20. LON educated MOB on safe sleep, shaken baby and PPD/A. LON also provided local resources for [facility]. No other needs voiced by MOB or FOB. LON updated RN of resources provided, no concerns. PLAN:? ?No other services requested or indicated. resources provided Beverly CARTER, KARLOS
== END 2022-07-31 18:05 | disposition home or self-care (01) | DRG 560 ==
PROVIDERS: Admitting Provider Obstetrics & Gynecology; Referring Provider Obstetrics & Gynecology; Visit Provider Advanced Practice Midwife
DX: O10.92 Unspecified pre-existing hypertension complicating childbirth (principal); Z37.0 Single live birth; O99.344 Other mental disorders complicating childbirth; F41.9 Anxiety disorder, unspecified; O26.893 Other specified pregnancy related conditions, third trimester; O42.02 Full-term premature rupture of membranes, onset of labor within 24 hours of rupture; Z67.11 Type A blood, Rh negative; O70.1 Second degree perineal laceration during delivery; Z3A.39 39 weeks gestation of pregnancy; Z87.891 Personal history of nicotine dependence
CPT/HCPCS: 59025; 59050; 85025; 85461; 86780; 86803; 86850; 86900; 86901; 99221; J7120; G0378; J2790

== ENCOUNTER 2022-11-01 09:41 | Day surgery (SDC) | payer MEDICAID, SELFPAY ==
--- NOTE | 2022-10-30 12:54 | PCM.HP.BLA ---
History and Physical Date of Admission: 10/30/22 HPI: The patient is a 27 year old female presenting for pre-operative visit. She is scheduled for laparoscopic bilateral salpingectomy, for sterilization on 11/01/22.. Procedure discussed along with risks, benefits and complications. Other alternatives discussed for management. Consent form signed? Yes. ? ? PAST MEDICAL HISTORY PAST MEDICAL HISTORY Diagnosis Date ? Gestational hypertension ? ? ? PAST SURGICAL HISTORY PAST SURGICAL HISTORY Procedure Laterality Date ? NONE ? CURRENT MEDICATIONS No current outpatient medications on file. ? No current facility-administered medications for this visit. ? ? ALLERGIES: Latex ? PERSONAL HISTORY: SOCIAL HISTORY Social History ? Tobacco Use ? Smoking status: Some Days ? ? Types: Cigarettes ? Smokeless tobacco: Never Vaping Use ? Vaping Use: Never used Substance Use Topics ? Alcohol use: Never ? Drug use: Never ? FAMILY HISTORY: FAMILY HISTORY FAMILY HISTORY Problem Relation Age of Onset ? Lung Cancer Mother 29 ? Skin Cancer Father ? ? Hypertension Sister ? ? other (gestational diabetes) Sister ? ? ? REVIEW OF SYMPTOMS: GENERAL: denies fevers or chills ENDOCRINOLOGY: has not been on steroids Cardiology : denies palpitations or chest pain Respiratory: denies SOB or cough Hematology: denies history of prolonged bleeding or easy bruising or VTE Allergy: Denies history of personal or family history of allergy to anesthesia ? PHYSICAL EXAMINATION: ? VITALS: Blood pressure 128/86, pulse 75, resp. rate 16, height 5' 6.25 (1.683 m), weight 193 lb (87.5 kg), last menstrual period 10/29/2022, SpO2 97 %, not currently . ? GENERAL: The patient is well nourished, well hydrated in no acute distress. , The patient is oriented to time, place, and person. NECK: Supple. No lynphadenopathy, normal thyroid, no thyromegaly. LUNGS: Clear to auscultation bilaterally. no wheezes, rhonchi or rales HEART: Regular rate and rhythm, Normal heart sounds, and No murmurs or gallops ? IMPRESSION: Sterilization request ? PLAN: The risks/benefits/alternatives and personal involved for the planned laparoscopic bilateral salpingectomy were reviewed with the patient. Her questions were answered to her satisfaction and she desires to proceed. Consent was signed. I reviewed with her postop instructions and expectations. ? ? I have reviewed and updated past medical and surgical history, medications and allergies Assessment & Plan Assessment/Plan (1) Sterilization:
[2022-11-01 10:11] LABS: Internal QC Validated? YES +Cl - CLEAR BKGD; Pregnancy, Urine Negative Negative
[2022-11-01 10:19] VITALS: BP 130/75; PULSE 74; RESP 16; TEMP 36.2; O2SAT 95; BMI 31.2
[2022-11-01] MEDS: Lactated Ringers 1,000 ML 15 ML IV (10:36)
[2022-11-01 10:45] LABS: Hematocrit 38.9 % (37-47); Hemoglobin 12.9 g/dL (12.0-15.0); Mean Corp Hgb Conc 33.2 g/dL (32-36); Mean Corpuscular Hgb 28.6 pg (27.0-32.0); Mean Corpuscular Volume 86.3 fL (81-99); Mean Platelet Vol. 10.7 fl (6.2-12.0); Platelet Count 337 K/mm3 (150-450); RBC Distribution Width CV 13.7 % (11.6-14.6); RBC Distribution Width SD 42.9 fl (35.1-43.9); Red Blood Count 4.51 M/mm3 (4.2-5.4)
[2022-11-01] MEDS: Ketorolac 30 MG/ML Syringe IV (10:48)
[2022-11-01] MEDS: Acetaminophen 500 MG Tablet 1000 MG PO (10:48)
--- NOTE | 2022-11-01 11:10 | FALS_PTH ---
PATIENT: MITESH FLOOD LOC: [facility] U#:[id number] AGE/SX: 27/F ROOM: RE11/01/[address]: Dr. Kayley Juarez MD : 1995 BED: DIS: 11/01/2022 SPEC #: [id number] RECD: 11/01/22 12:55 STATUS: ASA REClaudia #: [id number] CHANTELLE: 11/01/22 11:[address]: Kayley Juarez DEPT: SURGICAL PATHOLOGY RECD BY: Neema Tao ENTERED: 11/01/22 13:37 SP TYPE: FALL TUBES OTHR DR: No Primary Care Phys Tissues: Fallopian tube Procedures: Surgery Specimen Level IV HEADER OPERATION: Laparoscopic salpingectomy PRE-OP DIAGNOSIS: Sterilization TISSUE SUBMITTED: Bilateral fallopian tubes MICROSCOPIC DIAGNOSIS Right and left fallopian tubes, bilateral salpingectomies: Benign paratubal cysts of bilateral fallopian tubes. Complete cross-sections of fallopian tubes. AM:gloria 11/02/2022 MICROSCOPIC DESCRIPTION Slides are reviewed. GROSS DESCRIPTION Received in fixative is one container labeled with the patient's name and designated bilateral fallopian tubes. The specimen consists of bilateral fallopian tubes including fimbrial ends measuring 6.5 cm in length and 0.5 cm in diameter and 7.0 cm in length and 0.5 cm in diameter. The fallopian tubes are not identified as right or left. The fallopian tubes show paratubal cysts measuring 0.6 cm in greatest dimension. Sections reveal unremarkable cut surfaces. Rn Embedded sections are submitted in two cassettes as follows: 1 - one fallopian tube and adjacent paratubal cyst, 2 - second fallopian tube and adjacent paratubal cyst. / SJ:gloria 11/01/2022 TC:5 CPT: 15476 x2
--- NOTE | 2022-11-01 11:51 | DCINST_ITS ---
Discharge Instructions Diet Discharge Diet: No restrictions (Increase fluid intake for the next 48 hours.) Activity Additional Activity Instructions:: Ambulate often the next week after surgery. Nothing in the vagina for 5 days. Dressing / Incision Call your doctor if your incision/area has: Continuous Slow Oozing, Sudden Increased Bleeding, Increased Pain/ Swelling, Increased Redness and Foul Smelling Discharge Call your doctor if you observe: Fever of 101 or Higher Cleanse incision/area with: Soap & Water (Keep the skin glue on for 10 days) Follow Up Care Please Follow Up With: Kayley Juarez MD When: Call [phone] for follow-up appointment if needed Test Results: Test results from this visit will be discussed in further detail at your follow- up appointment, if applicable. Discharge Plan Admission Primary Reason for Your Visit: Tubal sterilization Attending Provider: Kayley Juarez Primary Care Provider: Care Physician,Joanne Primary Discharge Orders/Prescriptions Prescriptions: New oxycodone-acetaminophen [Percocet] 5-325 mg tablet 1 tab PO TID PRN (Reason: pain) 5 Days Qty: 7 0RF ibuprofen [ibuprofen] 600 mg tablet 600 mg PO Q6H PRN (Reason: Pain) 20 Days Qty: 60 1RF No Action multivitamin [Daily Multi-Vitamin] Tablet 1 tab PO DAILY Referrals / Follow Up: Care Physician,No Primary [Primary Care Provider] - Disposition Disposition (needs filled in before D/C Order can be placed): Home, Self Care
[2022-11-01] MEDS: Bupivacaine Mpf 0.5% 30 ML VIAL (11:57)
--- NOTE | 2022-11-01 12:12 | PCM.OPRPT ---
Report of Operation Date of Procedure: 11/01/22 Pre-Operative Diagnosis: sterilization request Post-Operative Diagnosis: same Surgery/Procedure Performed:: laparoscopic bilateral salpingectomy Description of Surgical Findings:: normal uterus, tubes and ovaries, normal cervix and vagina Surgeon: Kayley Juarez liner assembler: None Type of Anesthesia: General Anesthesiologist: Lily Grimm Special Medications: none Specimen's removed: bilateral fallopian tubes Drains: none Estimated Blood Loss (mL): 5 Fluids Replaced: 1000 Description of Procedure: The patient was taken to the operating room where she was prepped and draped in the dorsolithotomy position. A weighted speculum was placed in the vagina and the anterior lip of the cervix was grasped with a tenaculum. The Sharyn uterine manipulator was placed and the remainder of the instruments were removed from the vagina. Attention was turned to the abdomen. All port sites were infiltrated with 0.5% Marcaine before skin incisions were made. A 5 mm intraumbilical incision was made. The anterior abdominal wall was tented up with 2 towel clamps while a 5 mm blade less trocar and sleeve were directly inserted. Intraperitoneal placement was confirmed with the laparoscope. The pneumoperitoneum was created and the underlying abdominal contents were intact. The patient was placed in Trendelenburg. Right and left lower quadrant ports were placed under direct visualization lateral to the inferior epigastric vessels. The bowel was swept away and the above findings were noted. The LigaSure device was used to clamp seal and transect the antimesenteric portions of the right tube to the cornual insertion of the uterus. The tube was amputated from the uterus and the pedicles were all confirmed to be hemostatic. The same procedure was performed on the contralateral side. The specimens were brought out through a 5 mm port. The pedicles were again examined and found to be hemostatic. The lateral ports were removed under direct visualization and no active bleeding was noted. The pneumoperitoneum was released. The skin incisions were closed with Monocryl suture in a subcuticular fashion and skin glue. The vaginal instruments were removed and the vaginal sweep was completed by me. The procedure was performed by me with assistance other than as dictated above. All sponge and needle counts were correct and the patient was taken to the recovery room in stable condition. Grafts/Implants Used: none Procedure Start Time: 11:55 Procedure Stop Time: 12:10 Complications none Admit VTE Documentation VTE Present on Admission: No VTE Mechan Device Prophylaxis: SCD's VTE Pharm Prophylaxis ordered?: No Reason prophylaxis not ordered:: Procedure Not Indicated
[2022-11-01 12:30] VITALS: BP 130/75; BP 134/68; PULSE 79; RESP 16; TEMP 36.1; O2SAT 100
[2022-11-01 12:45] VITALS: BP 119/82; BP 130/75; PULSE 57; RESP 16; O2SAT 99
[2022-11-01 12:59] VITALS: BP 123/82; BP 130/75; PULSE 80; RESP 16; TEMP 36.4; O2SAT 100
[2022-11-01 13:20] VITALS: BP 130/75
== END 2022-11-01 13:32 | disposition home or self-care (01) ==
LOC: SDC 09:47 → AC 09:47
PROVIDERS: Referring Provider Obstetrics & Gynecology; Visit Provider Obstetrics & Gynecology
PROC: (CPT 58661; principal; 2022-11-01 10:55)
DX: Z30.2 Encounter for sterilization (principal); N83.8 Other noninflammatory disorders of ovary, fallopian tube and broad ligament; F17.210 Nicotine dependence, cigarettes, uncomplicated
CPT/HCPCS: 58661; 00840; 88302; 81025; 85027; 88305; J7120; C1760; J2405